=== PATIENT | female | born 1935 | race Caucasian/White ===

== ENCOUNTER → 2018-04-28 | Outpatient (CLI) | payer MEDICARE ==
[~2018-04-28] MED LIST: CATHETER FLUSH 10 ML SYR IV PRN
--- NOTE | 2018-04-28 12:00 | Diagnostic Imaging Report ---
Renal scan flow and function. 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 This study was performed following administration of 5.24 mCi of 99 technetium MDP. Multiple images of both kidneys were obtained. There are no prior studies available for comparison. There is uptake and excretion of the radiotracer by both kidneys. There is no sign of obstruction of either collecting system and the renogram excretion curves appear normal. However the left kidney does show somewhat diminished function compared to the right. Furthermore there is a photopenic defect in the superior pole of the left kidney. This may well correspond to the patient's diagnosis of renal cell carcinoma. The right renal contour is within normal limits. Impression: 1. There is uptake and excretion of the radiotracer by both kidneys. The function of the left kidney is somewhat less than the right however. 2. The photopenic defect in the superior pole of the left kidney may well correspond to the patient's diagnosis of carcinoma of the left kidney. If previous studies are available they would be helpful for comparison. Dictated by: Dictated on workstation # [id number]
== END ==
LOC: CARD 08:19
PROVIDERS: ATTEND Urology
DX: C64.2 Malignant neoplasm of left kidney, except renal pelvis (principal)
CPT/HCPCS: 78707